=== PATIENT | male | born 1975 | race Caucasian/White ===

== ENCOUNTER 2024-03-14 11:33 | Inpatient (IN) | payer OTHER ==
[2024-03-14 12:06] VITALS: BMI 19.9
[2024-03-14] MEDS ORDERED: guaiFENesin 600 MG TABLET.ER (FP) PO PRN (13:07)
[2024-03-14] MEDS ORDERED: ACETAMINOPHEN 325 MG TABLET (FP) PO PRN (13:07)
[2024-03-14] MEDS ORDERED: BENZONATATE 200 MG CAPSULE PO PRN (13:07)
[2024-03-14] MEDS ORDERED: NALOXONE HCL 0.4 MG/ML VIAL IM PRN (13:07)
[2024-03-14] MEDS ORDERED: POLYETHYLENE GLYCOL (HEALTHYLAX) 3350 17 GM PACKET PO PRN (13:07)
[2024-03-14] MEDS ORDERED: DICYCLOMINE HCL 10 MG CAPSULE PO PRN (13:07)
[2024-03-14] MEDS ORDERED: MAG HYDROX/AL HYDROX/SIMETH 30 ML UNIT-DOSE CUP PO PRN (13:07)
[2024-03-14] MEDS ORDERED: LOPERAMIDE HCL 2 MG CAPSULE PO PRN (13:07)
[2024-03-14] MEDS ORDERED: MAGNESIUM HYDROX 2400MG/30ML ORAL SUSPENSION 30 ML CUP PO PRN (13:07)
[2024-03-14] MEDS ORDERED: BENZOCAINE/MENTHOL (CHLORASEPTIC ) LOZENGE MM PRN (13:07)
[2024-03-14] MEDS ORDERED: NALOXONE (NARCAN) HCL 4 MG/0.1 ML SPRAY NS PRN (13:07)
[2024-03-14] MEDS ORDERED: BISMUTH SUBSALICYLATE 524 MG/30 ML PO PRN (13:07)
[2024-03-14] MEDS ORDERED: NICOTINE POLACRILEX 2 MG GUM BUC PRN (13:07)
[2024-03-14] MEDS ORDERED: IBUPROFEN 400 MG TABLET (FP) PO PRN (13:07)
[2024-03-14] MEDS ORDERED: cloNIDine HCL 0.1 MG TABLET PO PRN (13:10)
[2024-03-14] MEDS ORDERED: methaDONE HCL 10 MG TABLET PO ONE (13:14)
[2024-03-14] MEDS ORDERED: methaDONE HCL 10 MG TABLET (FOR DETOX USE ONLY) ONE (13:34)
[2024-03-14] MEDS ORDERED: cloNIDine HCL 0.1 MG TABLET ONE (13:34)
[2024-03-14] MEDS ORDERED: INSULIN (NOVOLOG) ASPART 100 UNITS/ML 10ML VIAL ONE (13:36)
[2024-03-14] MEDS: methaDONE HCL 10 MG TABLET PO ONE (13:39)
[2024-03-14] MEDS: INSULIN ASPART SLIDING SCALE (NOVOLOG) 1 VIAL SQ SCH (13:39)
[2024-03-14] MEDS: cloNIDine HCL 0.1 MG TABLET PO SCH (13:40)
[2024-03-14] MEDS ORDERED: cloNIDine HCL 0.1 MG TABLET PO SCH (14:00)
[2024-03-14] MEDS: methaDONE HCL 10 MG TABLET (FOR DETOX USE ONLY) PO ONE (14:37)
[2024-03-14] MEDS ORDERED: methaDONE HCL 10 MG TABLET PO PRN (15:14)
[2024-03-14] MEDS: IBUPROFEN 600 MG TABLET (FP) PO PRN (17:04)
[2024-03-14] MEDS: THIAMINE 100 MG TABLET PO SCH (22:22)
[2024-03-14] MEDS: MELATONIN 5 MG TABLETS PO SCH (22:22)
[2024-03-14] MEDS: DIVALPROEX SODIUM 500 MG TABLET E.C. PO SCH (22:22)
[2024-03-15] MEDS: methaDONE 40 MG, methaDONE 10 MG PO ONE (09:47)
[2024-03-15] MEDS: PRENATAL VITAMINS W/ FOLIC ACID TABLET (FP) PO SCH (09:50)
[2024-03-15] MEDS: NICOTINE 14 MG/24 HOURS TOPICAL PATCH TD SCH (09:50)
[2024-03-15] MEDS ORDERED: methaDONE 40 MG, methaDONE 10 MG PO ONE (10:00)
[2024-03-15 11:07] LABS: CHLORIDE 106 mmol/L (98-107); POTASSIUM 4.7 mmol/L (3.5-5.1); SODIUM 139 mmol/L (136-145)
[2024-03-15 11:09] LABS: CALCIUM 8.6 mg/dL (8.5-10.1)
[2024-03-15 11:10] LABS: ALBUMIN 2.9 g/dl (3.4-5.0); ANION GAP 6 mmol/L (4-13); CO2 27 mmol/L (21-32); GLUCOSE,RANDOM 284 mg/dL (74-106)
[2024-03-15 11:13] LABS: CREATININE 0.5 mg/dL (0.55-1.3); SGOT/AST 13 U/L (15-37); SGPT/ALT 22 U/L (13-61)
[2024-03-15 11:14] LABS: BILIRUBIN,TOTAL 0.6 mg/dL (0.2-1); TOT PROT 5.9 g/dl (6.4-8.2)
[2024-03-15 11:15] LABS: ALK PHOS 98 U/L (45-117)
[2024-03-15 11:28] LABS: HEMATOCRIT 36.9 % (35.4-49); HEMOGLOBIN 12.5 GM/dL (11.7-16.9); MCH 29.2 pg (25.7-33.7); MEAN CELL VOLUME 86.1 fl (80-96); MEAN PLT VOLUME 9.7 fl (7.5-11.1); PLATELET COUNT 202 10^3/uL (134-434); RBC 4.28 M/mm3 (4.00-5.60); RDW 14.6 % (11.9-15.9); WHITE BLOOD COUNT 6.6 K/mm3 (4.0-10.0)
[2024-03-15] MEDS: hydrOXYzine PAMOATE 25 MG CAPSULE (FP) PO PRN (14:32)
[2024-03-15] MEDS ORDERED: INSULIN ASPART SLIDING SCALE (NOVOLOG) 1 VIAL SQ ONE (15:09)
[2024-03-15] MEDS: INSULIN (NOVOLOG) ASPART 100 UNITS/ML 10ML VIAL SQ ONE (15:11)
[2024-03-15] MEDS: BACITRACIN 0.9 GM PACKET TP SCH (17:35)
[2024-03-15] MEDS: METHOCARBAMOL 500 MG TABLET PO PRN (17:40)
[2024-03-16] MEDS ORDERED: cloNIDine HCL 0.1 MG TABLET PO PRN
[2024-03-16] MEDS: ONDANSETRON *ODT* 4 MG TABLET SL PRN (06:57)
[2024-03-16] MEDS: cloNIDine HCL 0.1 MG TABLET PO PRN (07:31)
[2024-03-16] MEDS: methaDONE 40 MG, methaDONE 20 MG PO ONE (09:16)
[2024-03-16] MEDS ORDERED: methaDONE 40 MG, methaDONE 20 MG PO ONE (10:00)
[2024-03-16] MEDS ORDERED: methaDONE HCL 10 MG TABLET (FOR DETOX USE ONLY) PO ONE (10:00)
[2024-03-16] MEDS: HALOPERIDOL 5 MG TABLET PO PRN (14:39)
[2024-03-16] MEDS: BENZTROPINE MESYLATE 1 MG TABLET PO SCH (22:52)
[2024-03-17] MEDS ORDERED: INSULIN ASPART SLIDING SCALE (NOVOLOG) 1 VIAL SQ ONE ×2 (06:09→12:27)
[2024-03-17] MEDS: methaDONE HCL 10 MG TABLET PO PRN (07:02)
[2024-03-17] MEDS: methaDONE 40 MG, methaDONE 30 MG PO ONE (09:05)
[2024-03-17] MEDS ORDERED: methaDONE 40 MG, methaDONE 30 MG PO ONE (10:00)
[2024-03-17] MEDS: HALOPERIDOL 5 MG TABLET PO SCH (21:04)
[2024-03-17] MEDS ORDERED: HALOPERIDOL 5 MG TABLET PO SCH (22:00)
[2024-03-18] MEDS: methaDONE HCL 40 MG DISPERSABLE TABLET PO ONE (09:26)
[2024-03-18] MEDS ORDERED: methaDONE HCL 40 MG DISPERSABLE TABLET PO ONE (10:00)
[2024-03-18] MEDS ORDERED: methaDONE HCL 10 MG TABLET (FOR DETOX USE ONLY) PO ONE (10:00)
[2024-03-19] MEDS: methaDONE 80 MG, methaDONE 10 MG PO ONE (09:35)
[2024-03-19 09:36] VITALS: BP 129/73; PULSE 77; RESP 18; TEMP 97.7
[2024-03-19] MEDS ORDERED: methaDONE 80 MG, methaDONE 10 MG PO ONE (10:00)
== END 2024-03-19 10:34 | disposition other institution (70) | DRG 773 ==
LOC: YASAS 11:33 → Y3N 13:53
PROVIDERS: ADMIT Allergy & Immunology; ATTEND Surgery
PROC: HZ2ZZZZ Detoxification Services for Substance Abuse Treatment (ICD-10-PCS; principal; 2024-03-14)
DX: F11.23 Opioid dependence with withdrawal (principal); F14.20 Cocaine dependence, uncomplicated; F17.210 Nicotine dependence, cigarettes, uncomplicated; F20.9 Schizophrenia, unspecified; F32.A Depression, unspecified; I10 Essential (primary) hypertension; E11.9 Type 2 diabetes mellitus without complications
CPT/HCPCS: 36415; 70150-TC-FY; 80053; 80164; 80305; 80307; 82962; 85027; 86780; 93005; 93010; Q0162

== ENCOUNTER 2024-05-04 17:36 | Inpatient (IN) | payer OTHER ==
[2024-05-04 18:38] VITALS: BMI 19.3
[2024-05-04] MEDS ORDERED: POLYETHYLENE GLYCOL (HEALTHYLAX) 3350 17 GM PACKET PO PRN (21:16)
[2024-05-04] MEDS ORDERED: LOPERAMIDE HCL 2 MG CAPSULE PO PRN (21:16)
[2024-05-04] MEDS ORDERED: ACETAMINOPHEN 325 MG TABLET (FP) PO PRN (21:16)
[2024-05-04] MEDS ORDERED: NICOTINE POLACRILEX 2 MG LOZENGE BC PRN (21:16)
[2024-05-04] MEDS ORDERED: NALOXONE (NARCAN) HCL 4 MG/0.1 ML SPRAY NS PRN (21:16)
[2024-05-04] MEDS ORDERED: BENZOCAINE/MENTHOL (CHLORASEPTIC ) LOZENGE MM PRN (21:16)
[2024-05-04] MEDS ORDERED: NALOXONE (NYS OPIOID OVERDOSE PROGRAM) 4 MG/0.1 ML SPRAY NS PRN (21:16)
[2024-05-04] MEDS ORDERED: P-EPHED 60MG/TRIPROLIDI 2.5MG TABLET PO PRN (21:16)
[2024-05-04] MEDS ORDERED: BENZONATATE 200 MG CAPSULE PO PRN (21:16)
[2024-05-04] MEDS ORDERED: IBUPROFEN 400 MG TABLET (FP) PO PRN (21:16)
[2024-05-04] MEDS ORDERED: MAG HYDROX/AL HYDROX/SIMETH 30 ML UNIT-DOSE CUP PO PRN (21:16)
[2024-05-04] MEDS ORDERED: guaiFENesin 600 MG TABLET.ER (FP) PO PRN (21:16)
[2024-05-04] MEDS ORDERED: NICOTINE POLACRILEX 2 MG GUM BUC PRN (21:16)
[2024-05-04] MEDS ORDERED: MAGNESIUM HYDROX 2400MG/30ML ORAL SUSPENSION 30 ML CUP PO PRN (21:16)
[2024-05-04] MEDS ORDERED: BENZOCAINE 20 % GEL TUBE MM PRN (21:28)
[2024-05-04] MEDS: INSULIN ASPART SLIDING SCALE (NOVOLOG) 1 VIAL SQ SCH (22:24)
[2024-05-04] MEDS: HALOPERIDOL 5 MG TABLET PO ONE (22:27)
[2024-05-04] MEDS: THIAMINE 100 MG TABLET PO SCH (22:27)
[2024-05-04] MEDS: MELATONIN 5 MG TABLETS PO SCH (22:27)
[2024-05-04] MEDS: METHOCARBAMOL 500 MG TABLET PO ONE (22:27)
[2024-05-05] MEDS ORDERED: INSULIN ASPART SLIDING SCALE (NOVOLOG) 1 VIAL SQ ONE (06:45)
[2024-05-05] MEDS: methaDONE HCL 40 MG DISPERSABLE TABLET PO SCH (09:28)
[2024-05-05] MEDS: PRENATAL VITAMINS W/ FOLIC ACID TABLET (FP) PO SCH (09:29)
[2024-05-05 14:41] LABS: HEMATOCRIT 36.1 % (35.4-49); HEMOGLOBIN 12.3 GM/dL (11.7-16.9); MCH 29.1 pg (25.7-33.7); MCHC 34.2 g/dl (32.0-35.9); MEAN CELL VOLUME 85.2 fl (80-96); MEAN PLT VOLUME 9.4 fl (7.5-11.1); PLATELET COUNT 272 10^3/uL (134-434); RBC 4.23 M/mm3 (4.00-5.60); WHITE BLOOD COUNT 5.4 K/mm3 (4.0-10.0)
[2024-05-05 15:26] LABS: POTASSIUM 4.9 mmol/L (3.5-5.1)
[2024-05-05 15:27] LABS: ALBUMIN 2.6 g/dl (3.4-5.0); BLOOD UREA NITROGEN 10.3 mg/dL (7-18)
[2024-05-05 15:31] LABS: CREATININE 0.6 mg/dL (0.55-1.3)
[2024-05-05 15:32] LABS: BILIRUBIN,TOTAL 0.2 mg/dL (0.2-1); TOT PROT 5.5 g/dl (6.4-8.2)
[2024-05-05] MEDS: BENZTROPINE MESYLATE 1 MG TABLET PO SCH (21:31)
[2024-05-05] MEDS: HALOPERIDOL 5 MG TABLET PO SCH (21:31)
[2024-05-06] MEDS: IBUPROFEN 600 MG TABLET (FP) PO PRN (18:30)
[2024-05-08 06:35] VITALS: RESP 16
[2024-05-08] MEDS ORDERED: INSULIN ASPART SLIDING SCALE (NOVOLOG) 1 VIAL SQ ONE (06:59)
[2024-05-08] MEDS: SUVOREXANT 10 MG TABLET PO PRN (21:10)
[2024-05-08 23:11] LABS: PH,URINE 6.5 (5.0-8.0); URINE APPEARANCE CLEAR; URINE BILIRUBIN NEGATIVE (NEGATIVE); URINE COLOR YELLOW; URINE GLUCOSE (UA) 2+ (NEGATIVE); URINE KETONE NEGATIVE (NEGATIVE); URINE LEUK ESTERASE NEGATIVE (NEGATIVE); URINE NITRITE NEGATIVE (NEGATIVE); URINE PROTEIN NEGATIVE (NEGATIVE)
[2024-05-09] MEDS: HALOPERIDOL 5 MG TABLET PO SCH (13:44)
[2024-05-10 06:43] VITALS: PULSE 72
[2024-05-11 09:54] VITALS: BP 109/60; TEMP 97.3
[2024-05-11] MEDS ORDERED: INSULIN ASPART SLIDING SCALE (NOVOLOG) 1 VIAL SQ ONE (12:04)
[2024-05-11] MEDS ORDERED: SUVOREXANT 10 MG TABLET PO PRN (22:00)
== END 2024-05-11 17:43 | disposition home or self-care (01) | DRG 772 ==
LOC: YASAS 17:36 → Y3NR 21:41 → Y3W 05-05 12:44
PROVIDERS: ADMIT Allergy & Immunology; ATTEND Psychiatry & Neurology Pain Medicine
PROC: HZ42ZZZ Group Counseling for Substance Abuse Treatment, Cognitive-Behavioral (ICD-10-PCS; principal; 2024-05-04)
DX: F11.20 Opioid dependence, uncomplicated (principal); F14.20 Cocaine dependence, uncomplicated; F17.210 Nicotine dependence, cigarettes, uncomplicated; F20.9 Schizophrenia, unspecified; F32.A Depression, unspecified; I10 Essential (primary) hypertension; E11.9 Type 2 diabetes mellitus without complications; Z79.84 Long term (current) use of oral hypoglycemic drugs
CPT/HCPCS: 36415; 80053; 80305; 80307; 81003; 82962; 85027; 86780; 87811

== ENCOUNTER 2024-09-07 11:05 | Inpatient (IN) | payer OTHER ==
[2024-09-07 11:25] VITALS: BMI 18.8
[2024-09-07] MEDS ORDERED: guaiFENesin 600 MG TABLET.ER (FP) PO PRN (11:32)
[2024-09-07] MEDS ORDERED: ACETAMINOPHEN 325 MG TABLET (FP) PO PRN (11:32)
[2024-09-07] MEDS ORDERED: NALOXONE (NARCAN) HCL 4 MG/0.1 ML SPRAY NS PRN (11:32)
[2024-09-07] MEDS ORDERED: MAGNESIUM HYDROX 2400MG/30ML ORAL SUSPENSION 30 ML CUP PO PRN (11:32)
[2024-09-07] MEDS ORDERED: BENZONATATE 200 MG CAPSULE PO PRN (11:32)
[2024-09-07] MEDS ORDERED: LOPERAMIDE HCL 2 MG CAPSULE PO PRN (11:32)
[2024-09-07] MEDS ORDERED: BENZOCAINE/MENTHOL (CHLORASEPTIC ) LOZENGE MM PRN (11:32)
[2024-09-07] MEDS ORDERED: IBUPROFEN 400 MG TABLET (FP) PO PRN (11:32)
[2024-09-07] MEDS ORDERED: POLYETHYLENE GLYCOL (HEALTHYLAX) 3350 17 GM PACKET PO PRN (11:32)
[2024-09-07] MEDS ORDERED: PRENATAL VITAMINS W/ FOLIC ACID TABLET (FP) PO ONE (12:10)
[2024-09-07] MEDS: PRENATAL VITAMINS W/ FOLIC ACID TABLET (FP) PO SCH (12:12)
[2024-09-07] MEDS ORDERED: INSULIN ASPART SLIDING SCALE (NOVOLOG) 1 VIAL SQ ONE (13:06)
[2024-09-07] MEDS: INSULIN (NOVOLOG) ASPART 100 UNITS/ML 10ML VIAL SQ ONE (13:21)
[2024-09-07] MEDS: CLINDAMYCIN HCL 150 MG CAPSULE (FP) PO SCH (13:52)
[2024-09-07] MEDS: metFORMIN HCL 500 MG TABLET (FP) PO SCH (16:30)
[2024-09-07] MEDS ORDERED: INSULIN ASPART SLIDING SCALE (NOVOLOG) 1 VIAL SQ SCH (16:30)
[2024-09-07] MEDS: INSULIN ASPART SLIDING SCALE (NOVOLOG) 1 VIAL SQ SCH (16:32)
[2024-09-07] MEDS: THIAMINE 100 MG TABLET PO SCH (21:13)
[2024-09-07] MEDS: MELATONIN 5 MG TABLETS PO SCH (21:13)
[2024-09-07] MEDS: DIVALPROEX SODIUM 500 MG TABLET E.C. PO SCH (21:14)
[2024-09-07] MEDS: HALOPERIDOL 5 MG TABLET PO SCH (21:14)
[2024-09-08] MEDS ORDERED: INSULIN ASPART SLIDING SCALE (NOVOLOG) 1 VIAL SQ ONE ×2 (06:07→11:00)
[2024-09-08] MEDS ORDERED: methaDONE HCL 40 MG DISPERSABLE TABLET PO SCH (10:00)
[2024-09-08] MEDS: NICOTINE 21 MG/24 HOURS TOPICAL PATCH TD SCH (10:18)
[2024-09-08 11:20] LABS: HEMATOCRIT 39.5 % (35.4-49); HEMOGLOBIN 12.7 GM/dL (11.7-16.9); MCH 27.9 pg (25.7-33.7); MCHC 32.2 g/dl (32.0-35.9); MEAN CELL VOLUME 86.7 fl (80-96); MEAN PLT VOLUME 9.4 fl (7.5-11.1); PLATELET COUNT 220 10^3/uL (134-434); RBC 4.55 M/mm3 (4.00-5.60); RDW 14.6 % (11.9-15.9); WHITE BLOOD COUNT 5.4 K/mm3 (4.0-10.0)
[2024-09-08 11:22] LABS: INR 1.01 (0.83-1.09)
[2024-09-08 11:22] LABS: PH,URINE 7.5 (5.0-8.0); URINE APPEARANCE CLEAR; URINE BILIRUBIN NEGATIVE (NEGATIVE); URINE COLOR YELLOW; URINE GLUCOSE (UA) 3+ (NEGATIVE); URINE KETONE NEGATIVE (NEGATIVE); URINE LEUK ESTERASE NEGATIVE (NEGATIVE); URINE NITRITE NEGATIVE (NEGATIVE); URINE PROTEIN NEGATIVE (NEGATIVE)
[2024-09-08 11:23] LABS: POTASSIUM 4.7 mmol/L (3.5-5.1)
[2024-09-08 11:29] LABS: MAGNESIUM 1.7 mg/dL (1.8-2.4)
[2024-09-08 11:30] LABS: CALCIUM 9.1 mg/dL (8.5-10.1)
[2024-09-08 11:31] LABS: ALBUMIN 2.8 g/dl (3.4-5.0)
[2024-09-08 11:34] LABS: CREATININE 0.6 mg/dL (0.55-1.3)
[2024-09-08 11:35] LABS: BILIRUBIN,TOTAL 0.3 mg/dL (0.2-1); TOT PROT 6.2 g/dl (6.4-8.2)
[2024-09-08 12:28] LABS: HIV INTERPRETATION NEGATIVE (NEGATIVE)
[2024-09-09] MEDS ORDERED: INSULIN ASPART SLIDING SCALE (NOVOLOG) 1 VIAL SQ ONE ×2 (07:26→16:54)
[2024-09-09] MEDS: IBUPROFEN 600 MG TABLET (FP) PO PRN (19:45)
[2024-09-10] MEDS ORDERED: INSULIN ASPART SLIDING SCALE (NOVOLOG) 1 VIAL SQ ONE ×3 (06:06→16:48)
[2024-09-10] MEDS: hydrOXYzine PAMOATE 25 MG CAPSULE (FP) PO PRN (09:24)
[2024-09-11] MEDS ORDERED: INSULIN ASPART SLIDING SCALE (NOVOLOG) 1 VIAL SQ ONE ×3 (06:00→16:46)
[2024-09-11] MEDS: MELATONIN 5 MG TABLETS PO SCH (21:14)
[2024-09-12] MEDS ORDERED: INSULIN ASPART SLIDING SCALE (NOVOLOG) 1 VIAL SQ ONE ×4 (05:57→17:07)
[2024-09-12] MEDS: HALOPERIDOL 1 MG TABLET PO SCH (10:01)
[2024-09-12] MEDS: SUVOREXANT 10 MG TABLET PO PRN (21:18)
[2024-09-13] MEDS ORDERED: INSULIN ASPART SLIDING SCALE (NOVOLOG) 1 VIAL SQ ONE ×3 (07:03→17:09)
[2024-09-14] MEDS ORDERED: INSULIN ASPART SLIDING SCALE (NOVOLOG) 1 VIAL SQ ONE ×3 (07:06→16:20)
[2024-09-14] MEDS ORDERED: SUVOREXANT 10 MG TABLET PO PRN (22:00)
[2024-09-15] MEDS ORDERED: INSULIN ASPART SLIDING SCALE (NOVOLOG) 1 VIAL SQ ONE ×3 (08:23→16:27)
[2024-09-16] MEDS ORDERED: INSULIN ASPART SLIDING SCALE (NOVOLOG) 1 VIAL SQ ONE (07:39)
[2024-09-16] MEDS: SUVOREXANT 10 MG TABLET PO PRN (21:21)
[2024-09-17] MEDS: HALOPERIDOL 5 MG TABLET PO SCH (19:44)
[2024-09-17] MEDS: BENZTROPINE MESYLATE 1 MG TABLET PO SCH (19:44)
[2024-09-17] MEDS: SUVOREXANT 5 MG TABLET PO PRN (21:14)
[2024-09-18] MEDS ORDERED: INSULIN ASPART SLIDING SCALE (NOVOLOG) 1 VIAL SQ ONE (16:51)
[2024-09-18] MEDS: MAG HYDROX/AL HYDROX/SIMETH 30 ML UNIT-DOSE CUP PO PRN (21:34)
[2024-09-19] MEDS ORDERED: INSULIN ASPART SLIDING SCALE (NOVOLOG) 1 VIAL SQ ONE ×2 (06:42→12:03)
[2024-09-19] MEDS: VITAMINS A AND D TOPICAL OINTMENT TP SCH (18:14)
[2024-09-19] MEDS: BACITRACIN 0.9 GM PACKET TP SCH (19:13)
[2024-09-20] MEDS ORDERED: INSULIN ASPART SLIDING SCALE (NOVOLOG) 1 VIAL SQ ONE ×3 (07:09→17:17)
[2024-09-20] MEDS: methaDONE HCL 10 MG TABLET PO ONE (07:29)
[2024-09-20] MEDS: SUVOREXANT 5 MG TABLET PO PRN (21:30)
[2024-09-21] MEDS ORDERED: INSULIN ASPART SLIDING SCALE (NOVOLOG) 1 VIAL SQ ONE ×2 (07:36→16:47)
[2024-09-22 05:34] VITALS: BP 108/68; PULSE 72; RESP 16; TEMP 97.8
[2024-09-22] MEDS ORDERED: INSULIN ASPART SLIDING SCALE (NOVOLOG) 1 VIAL SQ ONE ×2 (07:34→11:32)
[2024-09-22] MEDS ORDERED: SUVOREXANT 10 MG TABLET PO PRN (22:00)
== END 2024-09-22 15:55 | disposition home or self-care (01) | DRG 772 ==
LOC: YASAS 11:05 → Y3W 12:19
PROVIDERS: ADMIT Psychiatry & Neurology Pain Medicine; ATTEND Psychiatry & Neurology Pain Medicine
PROC: HZ42ZZZ Group Counseling for Substance Abuse Treatment, Cognitive-Behavioral (ICD-10-PCS; principal; 2024-09-07)
DX: F11.20 Opioid dependence, uncomplicated (principal); F14.20 Cocaine dependence, uncomplicated; F17.210 Nicotine dependence, cigarettes, uncomplicated; F20.9 Schizophrenia, unspecified; F32.A Depression, unspecified; I10 Essential (primary) hypertension; E11.65 Type 2 diabetes mellitus with hyperglycemia; Z79.84 Long term (current) use of oral hypoglycemic drugs; L03.115 Cellulitis of right lower limb; R26.89 Other abnormalities of gait and mobility; Z89.421 Acquired absence of other right toe(s); Z62.810 Personal history of physical and sexual abuse in childhood; Z63.8 Other specified problems related to primary support group; Z59.02 Unsheltered homelessness; Z56.0 Unemployment, unspecified
CPT/HCPCS: 36415; 80053; 80305; 80307; 81003; 82140; 82962; 83735; 85027; 85610; 86780; 86803; 87389; 87811; 93005; 93010

== ENCOUNTER 2024-09-08 12:14 | Emergency (ER) | payer OTHER ==
[2024-09-08 12:59] VITALS: RESP 18; BMI 19.3
[2024-09-08] MEDS: SODIUM CHLORIDE 0.9% 500 ML INFUS.BAG IV ONE (13:25)
[2024-09-08 13:44] LABS: VENOUS BASE EXCESS 1.9 mmol/L (-2-2); VENOUS O2 SATURATION 83.9 % (70-80); VENOUS PCO2 53.3 mmHg (38-52); VENOUS PH 7.349 (7.310-7.410)
[2024-09-08 13:46] LABS: BASO % 0.6 % (0-2.0); EOS % 4.8 % (0-4.5); HEMATOCRIT 41.8 % (35.4-49); HEMOGLOBIN 14.1 GM/dL (11.7-16.9); LYMPH % 37.7 % (8-40); MCH 28.8 pg (25.7-33.7); MCHC 33.7 g/dl (32.0-35.9); MEAN CELL VOLUME 85.6 fl (80-96); MEAN PLT VOLUME 9.5 fl (7.5-11.1); MONO % 5.9 % (3.8-10.2); PLATELET COUNT 293 10^3/uL (134-434); RBC 4.88 M/mm3 (4.00-5.60); RDW 14.9 % (11.9-15.9); WHITE BLOOD COUNT 9.8 K/mm3 (4.0-10.0)
[2024-09-08 14:11] LABS: CHLORIDE 103 mmol/L (98-107); POTASSIUM 3.5 mmol/L (3.5-5.1); SODIUM 140 mmol/L (136-145)
[2024-09-08 14:13] LABS: ALBUMIN 3.2 g/dl (3.4-5.0); ANION GAP 8 mmol/L (4-13); BLOOD UREA NITROGEN 9.9 mg/dL (7-18); CALCIUM 9.8 mg/dL (8.5-10.1); CO2 29 mmol/L (21-32); MAGNESIUM 1.8 mg/dL (1.8-2.4)
[2024-09-08 14:16] LABS: CREATININE 0.5 mg/dL (0.55-1.3); SGOT/AST 14 U/L (15-37); SGPT/ALT 18 U/L (13-61)
[2024-09-08 14:18] LABS: BILIRUBIN,TOTAL 0.3 mg/dL (0.2-1); TOT PROT 7.4 g/dl (6.4-8.2)
[2024-09-08 14:19] LABS: ALK PHOS 121 U/L (45-117); GLUCOSE,RANDOM 46 mg/dL (74-106)
[2024-09-08 14:22] LABS: N-TERMINAL BNP 51.4 pg/ml (5-125)
[2024-09-08 14:26] LABS: LACTIC ACID 3.3 mmol/L (0.4-2.0)
[2024-09-08] MEDS ORDERED: LORazepam 2 MG/ML SDV VIAL ONE (17:28)
[2024-09-08] MEDS: LORazepam 2 MG/ML SDV VIAL IVPUSH ONE (17:32)
[2024-09-08 17:57] LABS: POTASSIUM 4.7 mmol/L (3.5-5.1)
[2024-09-08 18:02] LABS: CREATININE 0.6 mg/dL (0.55-1.3)
[2024-09-08 18:13] LABS: CALCIUM 8.2 mg/dL (8.5-10.1); LACTIC ACID 2.3 mmol/L (0.4-2.0)
[2024-09-08 19:44] VITALS: BP 110/77; PULSE 58; TEMP 98.1
[2024-09-08] MEDS ORDERED: LACTULOSE 20 GM/30 ML UDC (FOR ORAL USE ONLY) ONE (23:04)
[2024-09-08] MEDS: LACTULOSE 20 GM/30 ML UDC (FOR ORAL USE ONLY) PO ONE (23:09)
== END 2024-09-08 23:50 | disposition home or self-care (01) ==
LOC: JER 12:14
PROC: 3E033GC Introduction of Other Therapeutic Substance into Peripheral Vein, Percutaneous Approach (ICD-10-PCS; principal; 2024-09-08)
DX: R53.1 Weakness (principal); E11.65 Type 2 diabetes mellitus with hyperglycemia; R10.13 Epigastric pain; R61 Generalized hyperhidrosis; Z20.822 Contact with and (suspected) exposure to COVID-19
CPT/HCPCS: 0241U-QW; 36415; 71045-TC-FY; 71275-TC; 74174-TC; 80048; 80053; 82803; 82962; 83605; 83735; 83880; 84484; 85025; 93005; 93010; 99285-25; Q9967